=== PATIENT | male | born 2000 | race Caucasian/White ===

== ENCOUNTER 2023-12-16 21:13 | Emergency (ER) | payer BC, SELFPAY ==
--- NOTE | ~2023-12-16 | CT_ITS ---
CT of the Abdomen and Pelvis: Indication: Abdominal pain Technique: 2.5 mm axial scans were obtained through the abdomen and pelvis following intravenous adm inistration of 100 cc of Omnipaque 350. Dose reduction technique was used on this scan by utilizing a utomated exposure control and iterative reconstruction technique. The dose-length product (DLP) was 7 95.04 mGy-cm. Findings: Scans through the lung bases are unremarkable. The liver, spleen, pancreas, gallbladder, adrenals and kidneys are within normal limits. No evidence of aortic aneurysm. No lymphadenopathy. No bowel obstruction or bowel wall thickening. There is no evidence to suggest acute appendicitis. Images through the pelvis were performed. Urinary bladder unremarkable. No pelvic mass seen. No ascit es. Bilateral L5 pars interarticularis defects are present, without subluxation. Impression: No significant abnormalities seen. Reviewed, dictated and finalized at [facility]. Impression: No significant abnormalities seen.
--- NOTE | ~2023-12-16 | XR_ITS ---
EXAMINATION: XR abdomen/kub 1V DATE: 12/16/2023 23:24 INDICATION: Constipation. Rectal pain. TECHNIQUE: A supine view of the abdomen on 2 radiographs was obtained. COMPARISON: None. FINDINGS: There are no dilated loops of bowel. There is a large volume of stool in the colon. IMPRESSION: 1. Normal bowel gas pattern. Reviewed, dictated and finalized at location A.
[2023-12-16 21:24] VITALS: BP 139/78; PULSE 84; RESP 17; TEMP 36.6; O2SAT 97
--- NOTE | 2023-12-16 23:12 | ED.GENADULT ---
HPI - General Adult General Chief complaint: Unspecified Stated complaint: problem with my butt Time Seen by Provider: 12/16/23 22:56 History of Present Illness HPI narrative: Patient is a 23-year-old male who presents to the emergency department this evening complaining of rectal pain. Patient states that any time he goes to use the restroom and has a bowel movement he has some burning and bleeding. Patient states that he does not believe that he is constipated as he has not had any issues with constipation in the past but believes that he may be more constipated than normal. Has not taking any stool softeners or laxatives. Denies any similar symptoms in the past. Denies any history of GI bleed or inflammatory bowel disease. No additional symptoms or concerns at this time. Related Data Allergies Allergy/AdvReac Type Severity Reaction Status Date / Time No Known Allergies Allergy Unknown Verified 12/16/23 21:27 Review of Systems Review of Systems: All systems are reviewed and are negative unless stated otherwise in the HPI. Exam Narrative: General: Alert, awake, afebrile, in no acute distress. HEENT: PERRL, no rhinorrhea, no post nasal drip, oropharynx clear. Cardiovascular: Regular rate and rhythm, no murmurs, rubs or gallops, no peripheral edema. Respiratory: Clear to auscultation bilaterally, no tachypnea, no wheezing, no rhonchi, no rubs, no respiratory distress. Abdomen: Soft, nontender, nondistended, no rebound, no guarding, no peritoneal signs. Rectal: Rectal exam performed with presence of female nurse poker dealer revealing good rectal tone, no evidence of external hemorrhoids, no fissure. Musculoskeletal: No joint swelling or deformity, normal muscle tone. Skin: No rashes or petechia, no signs of infection. Neurological: Alert and oriented to person, place, and time. Follows all commands. No focal deficits, speech is clear and fluent. Course Vital Signs Vital signs: Vital Signs Temperature 97.9 F 12/16/23 21:24 Pulse Rate 84 12/16/23 21:24 Respiratory Rate 17 12/16/23 21:24 Blood Pressure 139/78 12/16/23 21:24 Pulse Oximetry 97 12/16/23 21:24 Oxygen Delivery Room Air 12/16/23 21:24 Temperature 97.8 F 12/17/23 02:47 Pulse Rate 69 08/29/24 02:47 Respiratory Rate 17 12/17/23 02:47 Blood Pressure 120/69 12/17/23 02:47 Pulse Oximetry 97 12/17/23 02:47 Oxygen Delivery Room Air 12/16/23 21:24 Medical Decision Making MDM Narrative Medical decision making narrative: The patient was evaluated by myself in the emergency department. History is obtained from patient who is an independent historian and physical exam was performed. External medical records were reviewed at this time. IV was established and pertinent tests were ordered. Patient was administered 4 mg IV morphine for pain and 4 mg IV Zofran for nausea. Laboratory results obtained revealing no acute process. Imaging studies obtained included CT abdomen pelvis with IV contrast which was independently interpreted by me revealing no acute process, which is pending final radiology interpretation. Differential diagnosis considerations include anal fissures, external versus internal hemorrhoids, proctitis. Comorbidities impacting this visit include none. I have evaluated and discussed social determinants of health with the patient that could potentially impact subsequent diagnosis and treatment plans. On repeat assessment of the patient, reevaluation revealed that the patient is doing well and is in no acute distress. Patient symptoms have improved since he arrived to our emergency department. Repeat vital signs were all reviewed and noted to be stable. Differential diagnosis and treatment plan were discussed with the patient at bedside. Patient agrees with discussion and after shared medical decision making agrees with discharge. All questions were answered to the patient's satisfaction. Patient will
[2023-12-17 00:04] LABS: Basophils Percent Auto 0.3 % (0.2-1.2); Eosinophils Absolute Auto 0.1 K/mm3 (0-0.3); Eosinophils Percent Auto 1.2 % (0-4.4); Immature Granulocyte Absolute 0.01 K/mm3 (0.00-0.031); Immature Granulocyte Percent A 0.2 % (0-0.5); Lymphocytes Absolute Auto 1.42 K/mm3 (0.9-3.2); Lymphocytes Percent Auto 23.9 % (18.3-44.2); Mean Corpuscular Volume 91.3 fl (80-100); Mean Platelet Volume 10.4 fl (7.4-10.4); Monocytes Absolute Auto 0.5 K/mm3 (0.1-0.6); Monocytes Percent Auto 8.1 % (2.6-8.5); Neutrophils Absolute Auto 3.9 K/mm3 (1.3-6.7); Neutrophils Percent Auto 66.3 % (45.5-73.1); Platelet Count Result 193 k/mm3 (150-375); Red Blood Count 4.38 M/mm3 (4.6-6.20); White Blood Count 5.9 K/mm3 (4.5-10.0)
[2023-12-17 00:18] LABS: Anion Gap 11 mmol/L (4-12); Carbon Dioxide 27 mmol/L (22-30); Chloride 101 mmol/L (98-107); Potassium 3.8 mmol/L (3.4-5.0); Sodium 139 mmol/L (137-145)
[2023-12-17 00:19] LABS: Alanine Aminotransferase 30 U/L (6-50); Albumin Level 4.8 g/dL (3.5-5.1); Alkaline Phosphatase 57 U/L (38-126); Aspartate Amino Transferase 36 U/L (17-59); Bilirubin,Total 1.5 mg/dL (0.2-1.3); Blood Urea Nitrogen 17 mg/dL (9-20); Calcium 9.6 mg/dL (8.4-10.2); Estimated CRCL calculation 174 ml/min; Estimated Glomerular Filt Rate > 60; Glucose 97 mg/dL (65-110)
[2023-12-17] MEDS: MORPHINE SULFATE (*CRX) 4 MG/ML INJ IV PUSH (01:15)
[2023-12-17] MEDS: ONDANSETRON INJ 4 MG/2 ML VIAL IV PUSH (01:15)
[2023-12-17 01:17] VITALS: BP 111/62; PULSE 61; RESP 14; O2SAT 100
[2023-12-17 02:47] VITALS: BP 120/69; PULSE 69; RESP 17; TEMP 36.6; O2SAT 97
== END 2023-12-17 02:48 | disposition home or self-care (01) ==
PROVIDERS: Emergency Provider Emergency Medicine; PCP Family Medicine
DX: K62.89 Other specified diseases of anus and rectum (principal)
CPT/HCPCS: 36415; 74018; 74177; 80053; 85025; 96374; 96375; 99284; J2270; J2405; Q9967